=== PATIENT | male | born 1975 | race Caucasian/White ===

== ENCOUNTER → 2016-06-04 | Outpatient (CLI) | payer BC ==
[~2016-06-04] MED LIST: GADOBUTROL 10 ML VIAL IVP ONE
== END ==
LOC: FIMAGING 14:18
PROVIDERS: ATTEND Internal Medicine Infectious Disease
DX: M67.372 Transient synovitis, left ankle and foot (principal); M65.872 Other synovitis and tenosynovitis, left ankle and foot; M25.475 Effusion, left foot
CPT/HCPCS: A9585